=== PATIENT | female | born 1990 | race Asian ===

== ENCOUNTER 2024-10-07 11:34 | Emergency (ER) | payer MEDICAID ==
[~2024-10-07] VITALS: Ht 160 cm; Wt 58.6 kg
[2024-10-07 14:04] LABS: APPEARANCE,URINE HAZY (CLEAR); BILIRUBIN,URINE NEGATIVE (NEGATIVE); COLOR,URINE YELLOW (YELLOW); GLUCOSE, URINE (UA) NEGATIVE (NEGATIVE); KETONES,URINE NEGATIVE (NEGATIVE); LEUKOCYTE ESTERASE ,URINE NEGATIVE (NEGATIVE); NITRATE,URINE NEGATIVE (NEGATIVE); OCCULT BLOOD,URINE NEGATIVE (NEGATIVE); PH,URINE 7.5 (5.0-8.0); PROTEIN,URINE NEGATIVE (NEGATIVE); SPECIFIC GRAVITIY, URINE 1.013 (1.003-1.030); UROBILINOGEN,URINE <=1.0 mg/dL (<=1.0)
[2024-10-07 15:24] VITALS: BP 111/65; PULSE 84; RESP 18; O2SAT 98
== END 2024-10-07 15:50 | disposition home or self-care (01) ==
LOC: EMS 11:34
DX: O26.892 Other specified pregnancy related conditions, second trimester (principal); R10.30 Lower abdominal pain, unspecified; Z3A.24 24 weeks gestation of pregnancy
CPT/HCPCS: 76805; 81003; 99284